=== PATIENT | male | born 1960 | race American Indian/Alaskan Native ===

== ENCOUNTER 2021-01-06 19:39 | Emergency (ER) | payer OTHER ==
[2021-01-06] MEDS ORDERED: ACETAMINOPHEN 500 MG TAB PO ONE (20:34)
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
[2021-01-06 22:08] VITALS: BP 142/70
== END 2021-01-06 22:05 | disposition home or self-care (01) ==
LOC: ED 19:39
DX: S16.1XXA Strain of muscle, fascia and tendon at neck level, initial encounter (principal); V49.49XA Driver injured in collision with other motor vehicles in traffic accident, initial encounter; Y93.89 Activity, other specified; Y92.89 Other specified places as the place of occurrence of the external cause; Y99.8 Other external cause status
CPT/HCPCS: 72040; 99283